=== PATIENT | male | born 1995 | race Caucasian/White ===

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

== ENCOUNTER 2017-02-06 14:44 | Emergency (ER) | payer MEDICAID, OTHER ==
[2017-02-06] MEDS ORDERED: Adacel Vial IM ONE ×2 (15:03→15:30)
[2017-02-06] MEDS ORDERED: Marcaine 0.5% SDV 10 ML IJ ONE (15:03)
[2017-02-06] MEDS ORDERED: Marcaine 0.5% SDV 10 ML ONE (15:07)
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
--- NOTE | 2017-02-06 15:55 | XRAY ---
Indication: Wrist/forearm laceration. Comparison: None 2 views of the right forearm obtained. No bony, articular, or soft tissue abnormalities.
[2017-02-06] MEDS ORDERED: BACIGUENT PACKET TP ONE (16:09)
[2017-02-06] MEDS ORDERED: BACIGUENT PACKET ONE (16:14)
[2017-02-06 16:20] VITALS: BP 138/76; PULSE 76; O2SAT 96
== END 2017-02-06 16:20 | disposition home or self-care (01) ==
LOC: ED 14:44
PROC: 0HQDXZZ Repair Right Lower Arm Skin, External Approach (ICD-10-PCS; principal; 2017-02-06)
DX: S51.811A Laceration without foreign body of right forearm, initial encounter (principal); W25.XXXA Contact with sharp glass, initial encounter; W22.8XXA Striking against or struck by other objects, initial encounter
CPT/HCPCS: 12002; 73090; 90471; 90715; 96372; 99284; A9270-GY

== ENCOUNTER 2017-02-26 13:09 | Emergency (ER) | payer OTHER ==
[2017-02-26 13:22] VITALS: BP 156/97
[2017-02-26] MEDS ORDERED: MOTRIN 400 MG PO ONE (13:29)
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
[2017-02-26] MEDS ORDERED: MOTRIN 400 MG ONE (13:49)
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
[2017-02-26 14:03] VITALS: PULSE 129
[2017-02-26 14:12] VITALS: O2SAT 96
== END 2017-02-26 14:49 | disposition home or self-care (01) ==
LOC: ED 13:09
DX: S09.90XA Unspecified injury of head, initial encounter (principal); T14.8XXA Other injury of unspecified body region, initial encounter; Y04.2XXA Assault by strike against or bumped into by another person, initial encounter
CPT/HCPCS: 70450; 70486; 99284; A9270-GY

== ENCOUNTER 2021-02-03 05:31 | Emergency (ER) | payer SELFPAY ==
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
[2021-02-03 06:10] VITALS: O2SAT 98
[2021-02-03 07:43] VITALS: BP 122/78; PULSE 62
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
== END 2021-02-03 07:43 | disposition home or self-care (01) ==
LOC: ED 05:31
DX: S61.210A Laceration without foreign body of right index finger without damage to nail, initial encounter (principal); W25.XXXA Contact with sharp glass, initial encounter; S61.214A Laceration without foreign body of right ring finger without damage to nail, initial encounter; Z72.0 Tobacco use
CPT/HCPCS: 12002; 73130; 99283

== ENCOUNTER 2021-09-08 19:03 | Emergency (ER) | payer OTHER ==
[2021-09-08] MEDS ORDERED: TORAdol 30 mg Injection IM ONE (19:29)
[2021-09-08] MEDS ORDERED: Norflex 60 MG/2 ML IM ONE (19:29)
--- NOTE | 2021-09-08 19:35 | ERPHSYRPT ---
- History of Present Illness Source: patient Exam Limitations: no limitations Patient Subjective Stated Complaint: pt states "My Left hip has been hurting for a while, I went to [facility] a couple mondays back and they prescribed a steriod that I finished this friday. Since I ran out of that medicine My hip has been hurting again. 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 Pain radiates down L leg. He has seen [facility] wo resolution. Acute injury is denied. Pain is 7/10, sharp, and worse w movement. 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 Pt denies incontinence and LE paralysis. He does states that his LLE gets"numb" from time to time. Timing/Duration: other (1 month) Method of Injury: unknown Quality: sharp, stabbing Back Pain Radiation: buttocks, lower legs Severity of Pain-Max: moderate Severity of Pain-Current: moderate Modifying Factors: Improves With: movement Associated Symptoms: lower back pain, No fever, No chills, No sweating, No urinary incontinence, No loss of bowel control, No constipation, No nausea, No vomiting, No problems urinating, No light-headedness, No dizziness, No numbness in legs/feet, No weakness, No sensory/motor loss, No tingling in legs/feet, No muscle spasms Previous symptoms: same symptoms as today Allergies/Adverse Reactions: No Known Drug Allergies Allergy (Verified 09/08/21 19:14) Hx Tetanus, Diphtheria Vaccination/Date Given: Yes Hx Influenza Vaccination/Date Given: No Hx Pneumococcal Vaccination/Date Given: No Immunizations Up to Date: Yes Travel Risk - International Travel Have you traveled outside of the country in past 3 weeks: No - Coronavirus Screening Are you exhibiting any of the following symptoms?: No Close contact with a COVID-19 positive Pt in past 14-21 Days: No - Vaccine Status Have you recieved a Covid-19 vaccination: No - Review of Systems Constitutional: No Symptoms Eyes: No Symptoms Ears, Nose, & Throat: No Symptoms Respiratory: No Symptoms Cardiac: No Symptoms Abdominal/Gastrointestinal: No Symptoms Genitourinary Symptoms: No Symptoms Musculoskeletal: No Symptoms, Arthralgias, Back Pain Skin: No Symptoms Neurological: No Symptoms Psychological: No Symptoms Endocrine: No Symptoms Hematologic/Lymphatic: No Symptoms Immunological/Allergic: No Symptoms - Past Medical History Pertinent Past Medical History: No Neurological History: No Pertinent History ENT History: No Pertinent History Cardiac History: No Pertinent History Respiratory History: No Pertinent History Endocrine Medical History: No Pertinent History Musculoskeletal History: No Pertinent History GI Medical History: No Pertinent History History: No Pertinent History Psycho-Social History: No Pertinent History Male Reproductive Disorders: No Pertinent History - Past Surgical History Past Surgical History: Yes Neuro Surgical History: No Pertinent History Cardiac: No Pertinent History Respiratory: No Pertinent History Gastrointestinal: No Pertinent History Genitourinary: No Pertinent History Musculoskeletal: Orthopedic Surgery Male Surgical History: No Pertinent History Other Surgical History: left ankle - Social History Smoking Status: Never smoker How long have you smoked: YRS Exposure to second hand smoke: Yes Alcohol Use: None Drug Use: none Patient Lives Alone: No Significant Family History: no pertinent family hx - Nursing Vital Signs Nursing Vital Signs: Initial Vital Signs Temperature 98.7 F 09/08/21 19:15 Pulse Rate 118 H 09/08/21 19:15 Respiratory Rate 18 09/08/21 19:15 Blood Pressure 175/111 09/08/21 19:15 O2 Sat by Pulse Oximetry 97 09/08/21 19:15 Pain Scale Pain Intensity 7 Hypertensive - Physical Exam General Appearance: no apparent distress Eye Exam: PERRL/EOMI, eyes nml inspection Ears, Nose, Throat Exam: normal ENT inspection, TMs normal, pharynx normal, moist mucous membranes Neck Exam: normal inspection, non-tender, supple, full range of motion, No meningismus, No mass, No Brudzinski, No Kernig's, No carotid bruit Respiratory Exam: normal breath sounds, lungs clear, airway intact, No respiratory distress Cardiovascular Exam: regular rate/rhythm, normal heart sounds, normal peripheral pulses, capillary refill <2 sec, No murmur Gastrointestinal Exam: soft, normal bowel sounds, No tenderness Back Exam: normal inspection, No CVA tenderness, No vertebral tenderness Extremity Exam: normal inspection, normal range of motion, pelvis stable, No calf tenderness, No parasthesia, No paralysis, No gio's sign, No joint swelling, No pedal edema Peripheral Pulses: carotid (R): 2+, carotid (L): 2+ Neurologic Exam: alert, oriented x 3, cooperative, 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 as tested, normal mood/affect, nml cerebellar function, nml station & gait, sensation nml Skin Exam: normal color, warm, dry Lymphatic Exam: No adenopathy SpO2 Interpretation: normal SpO2: 97 O2 Delivery: Room Air - Course Nursing assessment & vital signs reviewed: Yes - CT Exams Pelvis CT Interpretation: Tele-radiologist Report (Nothing acute) Lumbar Spine CT Interpretation: Tele-radiologist Report (Ct L-spine spondylosis L4-L5/Disc protrusion impinging on L5 nerve root/Mod canal stenosis/8mm soft tissue mass on R possible small nerve sheath tumor/Partially calcified disc protrusion at L3-L4 involving L L4 nerve root) Ordered Tests: Active Orders 24 hr Category Date Time Status LUMBAR SPINE W/O [CT] Stat Exams 09/08/21 19:29 Taken PELVIS WITHOUT CONTRAST [CT] Stat Exams 09/08/21 19:28 Taken Medication Summary Discontinued Medications Generic Name Dose Route Start Last Admin Trade Name Freq PRN Reason Stop Dose Admin Ketorolac Tromethamine 60 mg 09/08/21 19:29 09/08/21 19:45 Ketorolac Tromethamine 30 Mg/Ml Inj IM 09/08/21 19:30 60 mg STAT ONE Administration Ketorolac Tromethamine Confirm 09/08/21 19:38 Ketorolac Tromethamine 30 Mg/Ml Inj Administered 09/08/21 19:39 Dose 60 mg .ROUTE .STK-MED ONE Orphenadrine Citrate 60 mg 09/08/21 19:29 09/08/21 19:45 Orphenadrine Citrate 60 Mg/2 Ml Vial IM 09/08/21 19:30 60 mg STAT ONE Administration Orphenadrine Citrate Confirm 09/08/21 19:38 Orphenadrine Citrate 60 Mg/2 Ml Vial Administered 09/08/21 19:39 Dose 60 mg .ROUTE .STK-MED ONE - Progress Progress: improved Progress Note: 09/08/21 20:56 60mg IM Toradol/60mg IM Norflex w improvement in pain Ct results reviewed w pt Counseled pt/family regarding: diagnosis, need for follow-up, rad results - Departure Departure Disposition: Home Clinical Impression: Degenerative disc disease Condition: Stable Critical Care Time: No Referrals: WOOD MORTENSEN [Primary Care Provider] - Follow up/PCP as directed Instructions: Low Back Pain (DC), Sciatica (DC) Additional Instructions: Follow up with orthopedic clinic on Friday 8:00AM-10:00AM Lodine/Norflex as needed for pain Forms: Work/School Release Form Prescriptions: Etodolac 400 mg [Lodine 400 mg] 400 mg PO BID PRN PRN #14 tablet PRN Reason: Pain Orphenadrine Citrate 100 mg [Norflex 100 MG Tablet] 100 mg PO BID PRN PRN #14 tab PRN Reason: Pain
[2021-09-08] MEDS ORDERED: TORAdol 30 mg Injection ONE (19:38)
[2021-09-08] MEDS ORDERED: Norflex 60 MG/2 ML ONE (19:38)
[2021-09-08 20:08] VITALS: BP 145/88; PULSE 90
[2021-09-08 20:56] VITALS: O2SAT 97
--- NOTE | 2021-09-09 07:48 | XRAY ---
Indication: Severe left hip and left leg pain. Multiple contiguous axial images obtained through the lumbar spine. Sagittal and coronal reformatted images obtained. Comparison: None Axial images demonstrates broad-based disc bulge at L3-L4 level. At L4-L5, there is large broad-based disc subligamentous disc herniation effacing the thecal sac and producing spinal canal/bilateral foraminal stenosis. Remaining lumbar disc levels are unremarkable. Facets are symmetric. Sagittal and coronal reformatted images demonstrates normal alignment with minimal L3-S1 disc space narrowing. No acute compression fracture or subluxation. Visualized noncontrasted soft tissues are unremarkable. Impression: 1. L4-L5 subligamentous disc herniation with spinal canal and bilateral foraminal stenosis. MRI may yield further information. 2. L3-L4 degenerative disc bulge. Comment: Preliminary interpretation made by [facility]. No critical discrepancy.
--- NOTE | 2021-09-09 07:48 | XRAY ---
Indication: Severe left hip and left leg pain. No known injury. Multiple contiguous axial images obtained through the pelvis with special attention to the osseous structures. Sagittal and coronal reformatted images obtained. Comparison: None No acute fracture, dislocation, or suspicious bony lesions. Visualized noncontrasted soft tissues including visualized bowel loops, urinary bladder, and major arteries/veins are unremarkable. CT lumbar spine reported separately. Impression: Negative CT pelvis. Comment: Preliminary interpretation made by [facility]. No critical discrepancy.
== END 2021-09-08 21:09 | disposition home or self-care (01) ==
LOC: ED 19:03
DX: M51.36 Other intervertebral disc degeneration, lumbar region (principal); M48.061 Spinal stenosis, lumbar region without neurogenic claudication; M25.552 Pain in left hip; M54.50 Low back pain, unspecified; Z28.310 Unvaccinated for COVID-19
CPT/HCPCS: 72131; 72192; 96372; 99283; J1885; J2360

== ENCOUNTER 2022-12-17 16:29 | Emergency (ER) | payer OTHER ==
[2022-12-17 16:50] VITALS: TEMP 98.2; O2SAT 98
[2022-12-17] MEDS ORDERED: Rocephin 1000 MG INJ IM ONE (17:00)
[2022-12-17] MEDS ORDERED: DECADRON 10MG INJ. IM ONE (17:04)
--- NOTE | 2022-12-17 17:06 | ERPHSYRPT ---
- History of Present Illness Time Seen by Provider: 12/17/22 16:50 Source: patient Exam Limitations: no limitations Patient Subjective Stated Complaint: Pt c/o of sore throat, body aches, and a fever since yesterday morning Triage Nursing Assessment: Pt brought to the ER by his friend, hypertensive, rates overall pain as 3/10, pulses normal, skin n/w/d, nausea, denies vomiting, unable to eat due to thinking he may vomit, doesn't appear to be in any distress Physician History: Patient a 27-year-old male presents to our emergency department for evaluation of a sore throat, fever and tender anterior cervical lymph nodes. That he has had for since yesterday. Symptoms have been progressive. Today he is experiencing body aches. Patient has a decreased appetite. No nausea or vomiting. No rash. Symptoms are progressive. Symptoms are moderate in intensity. No specific worsening or improving factors. 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 Patient's [id number] is at the bedside. He voices no other complaints or concerns at this time. Portions of this note were created with voice recognition technology. There may be grammatical, spelling, punctuation or sound alike errors Timing/Duration: today Severity: moderate Modifying Factors: Improves With: nothing Associated Symptoms: fever, loss of appetite, No vomiting, No abdominal pain, No shortness of breath Allergies/Adverse Reactions: No Known Drug Allergies Allergy (Verified 12/17/22 16:50) Hx Tetanus, Diphtheria Vaccination/Date Given: Yes Hx Influenza Vaccination/Date Given: No Hx Pneumococcal Vaccination/Date Given: No Travel Risk - International Travel Have you traveled outside of the country in past 3 weeks: No - Coronavirus Screening Are you exhibiting any of the following symptoms?: Yes Symptoms: Fever, Cough: New Onset, Shortness of Breath, Vomiting/Diarrhea, Headaches/Body Aches/Fatigue Close contact with a COVID-19 positive Pt in past 14-21 Days: No - Vaccine Status Have you recieved a Covid-19 vaccination: No - Review of Systems Constitutional: No Symptoms, No Fever, No Chills Eyes: No Symptoms Ears, Nose, & Throat: No Symptoms Respiratory: No Symptoms, No Cough, No Dyspnea Cardiac: No Symptoms, No Chest Pain, No Edema, No Syncope Abdominal/Gastrointestinal: No Symptoms, No Abdominal Pain, No Nausea, No Vomiting, No Diarrhea Genitourinary Symptoms: No Symptoms, No Dysuria Musculoskeletal: No Symptoms, No Back Pain, No Neck Pain Skin: No Symptoms, No Rash Neurological: No Symptoms, No Dizziness, No Focal Weakness, No Sensory Changes Psychological: No Symptoms Endocrine: No Symptoms Hematologic/Lymphatic: No Symptoms Immunological/Allergic: No Symptoms All Other Systems: Reviewed and Negative - Past Medical History Pertinent Past Medical History: No Neurological History: No Pertinent History ENT History: No Pertinent History Cardiac History: No Pertinent History Respiratory History: No Pertinent History Endocrine Medical History: No Pertinent History Musculoskeletal History: No Pertinent History GI Medical History: No Pertinent History History: No Pertinent History Psycho-Social History: No Pertinent History Male Reproductive Disorders: No Pertinent History - Past Surgical History Past Surgical History: Yes Neuro Surgical History: No Pertinent History Cardiac: No Pertinent History Respiratory: No Pertinent History Gastrointestinal: No Pertinent History Genitourinary: No Pertinent History Musculoskeletal: Orthopedic Surgery Male Surgical History: No Pertinent History Other Surgical History: left ankle - Social History Smoking Status: Never smoker How long have you smoked: YRS Exposure to second hand smoke: No Alcohol Use: None Drug Use: none Patient Lives Alone: Yes Significant Family History: no pertinent family hx - Nursing Vital Signs Nursing Vital Signs: Initial Vital Signs Temperature 98.2 F 12/17/22 16:43 Pulse Rate 80 12/17/22 16:43 Blood Pressure 162/86 12/17/22 16:43 O2 Sat by Pulse Oximetry 98 12/17/22 16:43 Pain Scale Pain Intensity 3 - Physical Exam General Appearance: no apparent distress, alert Eye Exam: PERRL/EOMI, eyes nml inspection Ears, Nose, Throat Exam: normal ENT inspection, TMs normal, moist mucous membranes, other (Tonsillar exudate) Neck Exam: normal inspection, non-tender, supple, full range of motion, other (Anterior cervical lymphadenopathy, enlarged tonsils with exudate bilaterally) Respiratory Exam: normal breath sounds, lungs clear, airway intact, No respiratory distress Cardiovascular Exam: regular rate/rhythm, normal heart sounds, normal peripheral pulses Gastrointestinal/Abdomen Exam: soft, normal bowel sounds, No tenderness, No mass Back Exam: normal inspection, normal range of motion, No CVA tenderness, No vertebral tenderness Extremity Exam: normal inspection, normal range of motion, pelvis stable Neurologic Exam: alert, oriented x 3, cooperative, normal mood/affect, nml cerebellar function, nml station & gait, sensation nml, No motor deficits Skin Exam: normal color, warm, dry, No rash Lymphatic Exam: No adenopathy SpO2 Interpretation: normal SpO2: 98 O2 Delivery: Room Air - Course Nursing assessment & vital signs reviewed: Yes Ordered Tests: Medication Summary Discontinued Medications Generic Name Dose Route Start Last Admin Trade Name Osorio PRN Reason Stop Dose Admin Ceftriaxone Sodium 1,000 mg 12/17/22 17:00 Ceftriaxone Sodium 1000 Mg Inj Vial IM 12/17/22 17:01 STAT ONE - Progress Progress: improved Progress Note: Patient a 27-year-old male presents to the emergency department for evaluation of sore throat, fever and body aches. Patient experiencing decreased appetite as well. Physical exam reveals tonsillar exudate anterior cervical lymphadenopathy. Patient currently afebrile. Patient is positive for strep based on [facility] criteria. Patient received an IM dose of Rocephin 1 g. Patient also received 10 mg of Decadron IM. A prescription for Augmentin forwarded to patient's pharmacy. No indication for further work-up at this time. Will discharge home. Patient agrees to follow-up with his primary care doctor within 48 hours for evaluation. He voices no other complaints or concerns at this time. Portions of this note were created with voice recognition technology. There may be grammatical, spelling, punctuation or sound alike errors Complexity of problems addressed is moderate acute complicated No critical care time Complexity of data reviewed is none. No specialized testing ordered. Diagnosis made based on history and physical exam. Risk of complication and or risk of morbidity/mortality of patient management is moderate. Patient received an IM dose of Rocephin and Decadron. A prescription for Augmentin was forwarded to patient's pharmacy. We will discharge patient home. Vital stable. Blood pressure slightly elevated. He will require follow-up with his primary care doctor for blood pressure monitoring and possible management. Time spent to discharge patient is approximately 15 minutes. Plan of care established for shared decision making. No social determinants of health present to impede follow-up. Portions of this note were created with voice recognition technology. There may be grammatical, spelling, punctuation or sound alike errors 12/17/22 17:12 Counseled pt/family regarding: diagnosis, need for follow-up - Departure Departure Disposition: Home Clinical Impression: Strep tonsillitis Condition: Stable Critical Care Time: No Additional Instructions: Discharge/Care Plan BERNABE MCCOY was seen on 12/17/22 in the Emergency Room. The patient was counseled regarding Diagnosis,Lab results, Imaging studies, need for follow up and when to return to the Emergency Room. Prescriptions given: Discharge Note I have spoken with the patient and/or caregivers. I have explained the patient's condition, diagnosis and treatment plan based on the information available to me at this time. I have answered the patient's and/or caregiver's questions and addressed any concerns. The patient and/or caregivers have as good understanding of the patient's diagnosis, condition and treatment plan as can be expected at this point. The vital signs have been stable. The patient's condition is stable and appropriate for discharge from the emergency department. The patient will pursue further outpatient evaluation with the primary care physician or other designated or consulting physician as outlined in the discharge instructions. The patient and/or caregivers are agreeable to this plan of care and follow-up instructions have been explained in detail. The patient and/or caregivers have received these instruction. The patient/and or caregivers are aware that any significant change in condition or worsening of symptoms should prompt an immediate return to this or the closest emergency department or call 911. Prescriptions: Amox Tr/Potass Clav. 875 mg [Augmentin 875-125 Tablet] 875 mg PO BID 7 Days #14 tablet
[2022-12-17] MEDS ORDERED: DECADRON 10MG INJ. ONE (17:09)
[2022-12-17] MEDS ORDERED: Rocephin 1000 MG INJ ONE (17:10)
[2022-12-17] MEDS ORDERED: XYLOCAINE 1% HCL 20 ML MDV ONE (17:10)
[2022-12-17 17:26] VITALS: BP 134/73; PULSE 79
== END 2022-12-17 17:30 | disposition home or self-care (01) ==
LOC: ED 16:29
DX: J03.00 Acute streptococcal tonsillitis, unspecified (principal); R50.9 Fever, unspecified; M79.10 Myalgia, unspecified site; Z28.310 Unvaccinated for COVID-19
CPT/HCPCS: 96372; 99283; J0696; J1100

== ENCOUNTER 2023-03-24 13:32 | Emergency (ER) | payer OTHER ==
[2023-03-24 13:53] VITALS: TEMP 98.3
[2023-03-24] MEDS ORDERED: TORAdol 30 mg Injection ONE (14:07)
[2023-03-24] MEDS ORDERED: Zofran 4 MG/2 ML VIAL ONE (14:07)
[2023-03-24] MEDS ORDERED: Sodium Chloride 0.9% 1000 ML 1,000 ML ONE (14:07)
[2023-03-24] MEDS: Sodium Chloride 0.9% 1000 ML 1,000 ML IV STA (14:13)
[2023-03-24] MEDS: Zofran 4 MG/2 ML VIAL IV ONE (14:16)
[2023-03-24] MEDS: TORAdol 30 mg Injection IV ONE (14:16)
[2023-03-24 14:19] LABS: Absolute Neutrophil Ct (ANC) 3.96 x10^3/uL (1.4-6.9); BASOPHIL % 0.5 % (0.0-0.4); Basophil (Absolute #) 0.04 x10^3/uL (0-0.4); Eosinophil % 3.4 % (0.00-5.0); Eosinophil (Absolute #) 0.26 x10^3/uL (0-0.5); Hemoglobin 15.6 g/dL (12.5-18.0); IMMATURE GRAN # 0.02 x10^3u/L (0.00-0.03); IMMATURE GRAN % 0.3 % (0.00-0.4); Lymphocyte (Absolute #) 2.76 x10^3/uL (1.0-4.6); Lymphocytes % 36.6 % (24.0-44.0); Mean Cell Volume 86.4 fL (78-100); Mean Corpuscular Hemoglobin 29.9 pg (26-32); Mean Corpuscular Hgb Concent. 34.7 g/dL (32-36); Mean Platelet Volume 12.2 fL (7.5-11.0); Monocyte (Absolute #) 0.51 x10^3/uL (0.0-1.3); Monocytes % 6.8 % (0.0-12.0); Neutrophil % 52.4 % (36.0-66.0); Platelet Count 211 x10^3/uL (150-450); Red Blood Count 5.21 x10^6/uL (4.1-5.6); Red Cell Distribution Width 12.7 % (11.5-14.0); White Blood Count 7.6 x10^3/uL (4.0-10.5)
--- NOTE | 2023-03-24 14:27 | XRAY ---
Indication: Pneumonia. Vomiting blood. Comparison: June 28, 2014 Portable chest again demonstrates normal heart and lungs. Bony thorax intact. No new/acute findings.
[2023-03-24 14:34] LABS: ALBUMIN 4.4 g/dL (3.5-5.0); ANION GAP 10.4 MEQ/L (5-15); BILIRUBIN,TOTAL 1.8 mg/dL (0.2-1.3); Calcium 9.3 mg/dL (8.4-10.2); Creatinine 1 0.8 mg/dL (0.66-1.25); Total Protein 7.8 g/dL (6.3-8.2)
[2023-03-24 15:02] VITALS: BP 138/76; PULSE 70; RESP 30; O2SAT 98
--- NOTE | 2023-03-24 15:04 | ERPHSYRPT ---
- History of Present Illness Time Seen by Provider: 03/24/23 13:35 Source: patient Exam Limitations: no limitations Patient Subjective Stated Complaint: C/O vomiting blood this am. States that sometimes it is bright red and other times it is darker, almost black. Denies di arrhea. States he has an "indigestion" pain in his upper abdomen and into his chest. Triage Nursing Assessment: Patient ambulated back to ER. He is alert and oriented. Patient a little SOB with exertion but denies being SOB. No cough. Skin tone normal. SALAZAR WNL. Physician History: Patient has been vomiting since this morning. Feeling there may be some blood tinge to it. Bright red. Symptoms darker. No other symptoms. No diarrhea. Some indigestion. Epigastric, into his chest. He is otherwise healthy. No falls no trauma. No chest pain. No signs or symptoms of pulmonary embolism today. Allergies/Adverse Reactions: No Known Drug Allergies Allergy (Verified 03/24/23 13:40) Home Medications: Naproxen 500 mg [Naprosyn 500 MG] 1 tab PO BID 03/24/23 [History] Hx Tetanus, Diphtheria Vaccination/Date Given: Yes Hx Influenza Vaccination/Date Given: No Hx Pneumococcal Vaccination/Date Given: No Immunizations Up to Date: Yes Travel Risk - International Travel Have you traveled outside of the country in past 3 weeks: No - Coronavirus Screening Are you exhibiting any of the following symptoms?: No Close contact with a COVID-19 positive Pt in past 14-21 Days: No - Vaccine Status Have you recieved a Covid-19 vaccination: No - Past Medical History Pertinent Past Medical History: No Neurological History: No Pertinent History ENT History: No Pertinent History Cardiac History: No Pertinent History Respiratory History: No Pertinent History Endocrine Medical History: No Pertinent History Musculoskeletal History: No Pertinent History GI Medical History: No Pertinent History History: No Pertinent History Psycho-Social History: No Pertinent History Male Reproductive Disorders: No Pertinent History - Past Surgical History Past Surgical History: Yes Neuro Surgical History: No Pertinent History Cardiac: No Pertinent History Respiratory: No Pertinent History Gastrointestinal: No Pertinent History Genitourinary: No Pertinent History Musculoskeletal: Orthopedic Surgery Male Surgical History: No Pertinent History Other Surgical History: left ankle, right hand/finger tendon repair, L4 surgery - Social History Smoking Status: Never smoker How long have you smoked: YRS Exposure to second hand smoke: No Alcohol Use: None Drug Use: none Patient Lives Alone: Yes Significant Family History: no pertinent family hx - Nursing Vital Signs Nursing Vital Signs: Initial Vital Signs Temperature 98.3 F 03/24/23 13:42 Pulse Rate 85 03/24/23 13:42 Respiratory Rate 15 03/24/23 13:42 Blood Pressure 163/89 03/24/23 13:42 O2 Sat by Pulse Oximetry 99 03/24/23 13:42 Pain Scale Pain Intensity 3 - Physical Exam SpO2 Interpretation: normal SpO2: 98 Comments: 03/24/23 15:18 Review of Systems Constitutional: Negative for fever. HENT: Negative for congestion. Respiratory: Negative for shortness of breath. Cardiovascular: Negative for chest pain. Gastrointestinal: Negative for abdominal pain. Vomiting Genitourinary: Negative for dysuria. Musculoskeletal: Negative for back pain. Skin: Negative for rash. Neurological: Negative for headaches. Psychiatric/Behavioral: Negative for behavioral problems. All other systems reviewed and are negative. Physical Exam Vitals signs and nursing note reviewed. Constitutional: Appearance: Patient is well-developed. HENT: Head: Normocephalic and atraumatic. Eyes: Conjunctiva/sclera: Conjunctivae normal. Neck: Trachea: No tracheal deviation. Cardiovascular: Rate and Rhythm: Normal rate. Pulmonary: Effort: Pulmonary effort is normal. No respiratory distress. Abdominal: Palpations: Abdomen is soft. No rebound or guarding no tenderness Musculoskeletal: General: No deformity. Skin: General: Skin is warm and dry. Neurological: Mental Status: Patient is alert and oriented to person, place, and time, behavior normal. - Course Nursing assessment & vital signs reviewed: Yes EKG Interpreted by Me: Sinus Rhythm (EKG shows sinus rhythm, rate 78, MN interval 157, QRS 103, QTc 377, no STEMI no other ST changes) Ordered Tests: Active Orders 24 hr Category Date Time Status IV Insertion STAT Care 03/24/23 14:03 Active CHEST 1 VIEW (PORTABLE) Stat Exams 03/24/23 14:04 Completed AMYLASE Stat Lab 03/24/23 14:00 Completed CBC W DIFF Stat Lab 03/24/23 14:03 Completed CMP Stat Lab 03/24/23 14:00 Completed LIPASE Stat Lab 03/24/23 14:00 Completed UA W/RFX UR CULTURE Stat Lab 03/24/23 15:00 Received Medication Summary Discontinued Medications Generic Name Dose Route Start Last Admin Trade Name Osorio PRN Reason Stop Dose Admin Sodium Chloride 1,000 mls @ 999 mls/hr 03/24/23 14:03 03/24/23 14:13 Sodium Chloride 0.9% 1000 Ml IV 03/24/23 15:03 999 mls/hr .Q1H1M STA Administration Sodium Chloride Confirm 03/24/23 14:07 Sodium Chloride 0.9% 1000 Ml Administered 03/24/23 14:08 Dose 1,000 mls @ ud .ROUTE .STK-MED ONE Ketorolac Tromethamine 30 mg 03/24/23 14:03 03/24/23 14:16 Ketorolac Tromethamine 30 Mg/Ml Inj IV 03/24/23 14:04 30 mg STAT ONE Administration Ketorolac Tromethamine Confirm 03/24/23 14:07 Ketorolac Tromethamine 30 Mg/Ml Inj Administered 03/24/23 14:08 Dose 30 mg .ROUTE .STK-MED ONE Ondansetron HCl 4 mg 03/24/23 14:03 03/24/23 14:16 Ondansetron Hcl 4 Mg/2 Ml Vial IV 03/24/23 14:04 4 mg STAT ONE Administration Ondansetron HCl Confirm 03/24/23 14:07 Ondansetron Hcl 4 Mg/2 Ml Vial Administered 03/24/23 14:08 Dose 4 mg .ROUTE .STK-MED ONE Lab/Rad Data: Laboratory Result Diagrams 03/24/23 14:03 03/24/23 14:00 Laboratory Results 03/24/23 03/24/23 Range/Units 14:03 14:00 WBC 7.6 (4.0-10.5) x10^3/uL RBC 5.21 (4.1-5.6) x10^6/uL Hgb 15.6 (12.5-18.0) g/dL Hct 45.0 (42-50) % MCV 86.4 (78-100) fL MCH 29.9 (26-32) pg MCHC 34.7 (32-36) g/dL RDW 12.7 (11.5-14.0) % Plt Count 211 (150-450) x10^3/uL MPV 12.2 H (7.5-11.0) fL Gran % 52.4 (36.0-66.0) % Immature Gran % (Auto) 0.3 (0.00-0.4) % Nucleat RBC Rel Count 0.0 (0.00-0.1) % Eos # (Auto) 0.26 (0-0.5) x10^3/uL Immature Gran # (Auto) 0.02 (0.00-0.03) x10^3u/L Absolute Lymphs (auto) 2.76 (1.0-4.6) x10^3/uL Absolute Monos (auto) 0.51 (0.0-1.3) x10^3/uL Absolute Nucleated RBC 0.00 (0.00-0.01) x10^3u/L Lymphocytes % 36.6 (24.0-44.0) % Monocytes % 6.8 (0.0-12.0) % Eosinophils % 3.4 (0.00-5.0) % Basophils % 0.5 (0.0-0.4) % Absolute Granulocytes 3.96 (1.4-6.9) x10^3/uL Basophils # 0.04 (0-0.4) x10^3/uL Sodium 136 L (137-145) mmol/L Potassium 4.0 (3.5-5.1) mmol/L Chloride 107 (98-107) mmol/L Carbon Dioxide 22 (22-30) mmol/L Anion Gap 10.4 (5-15) MEQ/L BUN 10 (9-20) mg/dL Creatinine 0.80 (0.66-1.25) mg/dL Estimated GFR 126.0 ML/MIN Glucose 98 (74-106) mg/dL Calcium 9.3 (8.4-10.2) mg/dL Total Bilirubin 1.80 H (0.2-1.3) mg/dL AST 50 (17-59) U/L ALT 121 H (0-50) U/L Alkaline Phosphatase 63 (38-126) U/L Serum Total Protein 7.8 (6.3-8.2) g/dL Albumin 4.4 (3.5-5.0) g/dL Amylase 67 (30-110) U/L Lipase 183 (23-300) U/L - Progress Progress: improved Progress Note: 03/24/23 15:19 Differential diagnosis includes: PNA, STEMI, NSTEMI, other infection, musc uloskeletal pain, pneumothorax, GI bug - We'll obtain basic labs, fluids, EKG, chest x-ray - EKG shows no ST changes - my read - O2 saturations consistently greater than 95%. - CXR shows no pneumonia, pneumothorax - my read Reevaluation: Patient feels entirely resolved with medications and fluids here. No further vomiting. Patient requesting discharge home at this point in time. Patient will have close follow-up with PCP. May return here sooner for new or changing symptoms. Counseled pt/family regarding: lab results, diagnosis, rad results Medical Desision Making - Diagnostic Testing Diagnostic test were ordered, analyzed, and reviewed by me: Yes Radiological Interpretation: Interpreted by me, Reviewed by me - Departure Departure Disposition: Home Clinical Impression: Vomiting Condition: Stable Critical Care Time: No Referrals: ZEINA PRABHAKAR [Primary Care Provider] - Follow up/PCP as directed Prescriptions: Ondansetron ODT 4 MG [Zofran Odt 4 mg] 4 mg PO Q6H PRN PRN #10 tablet PRN Reason: Vomiting
[2023-03-24 15:19] LABS: Appearance Clear (Clear); Bacteria None Seen /HPF (None Seen); Bilirubin Negative (Negative); Blood Negative (Negative); Epithelial Cells None Seen /HPF (None Seen); Glucose, Urine Negative (Negative); Hyaline Casts NONE SEEN /LPF (0-2); Ketones Negative (Negative); Leukocyte Esterase Trace (Negative); Nitrite Negative (Negative); Ph 5.5 (4.6-8.0); Protein,Urine Dip Negative (Negative); RBC 0-2 /HPF (0-5); Specific Gravity 1.025 (1.005-1.030); WBC 21-50 /HPF (0-5)
[2023-03-24 15:20] LABS: ADD URINE CULTURE? YES (NO)
== END 2023-03-24 15:21 | disposition home or self-care (01) ==
LOC: ED 13:32
DX: R11.10 Vomiting, unspecified (principal); R10.13 Epigastric pain; Z28.310 Unvaccinated for COVID-19
CPT/HCPCS: 36000; 36415; 71045; 80053; 81001; 82150; 83690; 85025; 87086; 96360; 96374; 99284; J1885; J2405

== ENCOUNTER 2024-01-02 04:45 | Emergency (ER) | payer OTHER ==
[2024-01-02 05:01] VITALS: RESP 22; O2SAT 98
[2024-01-02] MEDS ORDERED: TORAdol 30 mg Injection ONE (05:26)
[2024-01-02] MEDS: TORAdol 30 mg Injection IM ONE (05:27)
--- NOTE | 2024-01-02 05:34 | ERPHSYRPT ---
- History of Present Illness Time Seen by Provider: 01/02/24 05:28 Source: patient Exam Limitations: no limitations Patient Subjective Stated Complaint: pt states that he was at work and thought he had a pinched nerve. pt states that his arm became purple and cold. pt states he is having pain in his rt arm Triage Nursing Assessment: pt ambulated into the er; pt is axo x4; c/o rt upper arm pain; pt states 5/10 pain to upper rt arm; good ROM to rt wrist and rt hand; pt has decreased ROM to shoulder and rt elbow; no discoloration present to rt u pper extremity; strong rt radial pulse; good cap refill to rt hand; no respiratory distress present; hypertensive; tachycardic Physician History: patient states that he was at work and thought he had a pinched nerve. pt states that his arm became purple and cold. He states he is having pain in his right arm c/o rt upper arm pain; pt states 5/10 pain to upper right arm; good ROM to rt wrist and rt hand; pt has decreased ROM to shoulder and right elbow Occurred: just prior to arrival Method of Injury: unknown Quality: constant Severity of Pain-Max: mild Severity of Pain-Current: mild Extremities Pain Location: arm: right, elbow: right, forearm: right Modifying Factors: Improves With: nothing Associated Symptoms: none Body Map: 1 - area of pain Allergies/Adverse Reactions: No Known Drug Allergies Allergy (Verified 01/02/24 04:49) Hx Tetanus, Diphtheria Vaccination/Date Given: No (unsure) Hx Influenza Vaccination/Date Given: No Hx Pneumococcal Vaccination/Date Given: No Travel Risk - International Travel Have you traveled outside of the country in past 3 weeks: No - Emerging Infectious Disease Are you exhibiting symptoms associated with any current EIDs: No - Review of Systems Constitutional: No Symptoms Eyes: No Symptoms Ears, Nose, & Throat: No Symptoms Respiratory: No Symptoms Cardiac: No Symptoms Abdominal/Gastrointestinal: No Symptoms Genitourinary Symptoms: No Symptoms Musculoskeletal: Joint Pain, No Fall Skin: No Symptoms Neurological: No Symptoms Psychological: No Symptoms Endocrine: No Symptoms Hematologic/Lymphatic: No Symptoms Immunological/Allergic: No Symptoms - Past Medical History Pertinent Past Medical History: No Neurological History: No Pertinent History ENT History: No Pertinent History Cardiac History: No Pertinent History Respiratory History: No Pertinent History Endocrine Medical History: No Pertinent History Musculoskeletal History: No Pertinent History GI Medical History: No Pertinent History History: No Pertinent History Psycho-Social History: No Pertinent History Male Reproductive Disorders: No Pertinent History - Past Surgical History Past Surgical History: Yes Neuro Surgical History: No Pertinent History Cardiac: No Pertinent History Respiratory: No Pertinent History Gastrointestinal: No Pertinent History Genitourinary: No Pertinent History Musculoskeletal: Orthopedic Surgery Male Surgical History: No Pertinent History Other Surgical History: left ankle, right hand/finger tendon repair, L4 surgery Significant Family History: no pertinent family hx - Social History Smoking Status: Never smoker How long have you smoked: YRS Exposure to second hand smoke: No Alcohol Use: None Drug Use: none Patient Lives Alone: Yes - Social Determinants of Health Will the patient participate in the screening: Yes Do you worry about a steady place to live?: No Do you have any problems with any of the following?: No known problems In the past 12 months,have you had to go without utilities?: No Transportation Issues: No Has anyone in your support network made you feel unsafe?: No Have you or anyone in your house had to go without enough: No - Nursing Vital Signs Nursing Vital Signs: Initial Vital Signs Pulse Rate 126 H 01/02/24 04:51 Respiratory Rate 22 01/02/24 04:51 O2 Sat by Pulse Oximetry 98 01/02/24 04:51 Pain Scale Pain Intensity 5 - Physical Exam General Appearance: alert Eyes, Ears, Nose, Throat Exam: moist mucous membranes Neck Exam: non-tender, supple Cardiovascular/Respiratory Exam: chest non-tender, normal breath sounds, regular rate/rhythm, no respiratory distress, normal peripheral pulses Abdominal Exam: non-tender, No guarding Back Exam: normal inspection, No vertebral tenderness Shoulder Exam: normal inspection, no evidence of injury, normal ROM Elbow/Forearm Exam: normal inspection, no evidence of injury, normal ROM, pain, soft tissue tenderness, No abrasions, No asymmetry, No bone tenderness, No deformity, No ecchymosis, No swelling Wrist Exam: normal inspection Hand Exam: normal inspection DTR - Upper Extremity Exam: bicep (R): 2+, bicep (L): 2+, tricep (R): 2+, tricep (L): 2+ Neuro/Tendon Exam: normal sensation, normal motor functions Mental Status Exam: alert, oriented x 3, cooperative Skin Exam: normal color, warm, dry SpO2 Interpretation: normal SpO2: 98 O2 Delivery: Room Air - Course Nursing assessment & vital signs reviewed: Yes Ordered Tests: Medication Summary Discontinued Medications Generic Name Dose Route Start Last Admin Trade Name Osorio PRN Reason Stop Dose Admin Ketorolac Tromethamine 60 mg 01/02/24 05:24 01/02/24 05:27 Ketorolac Tromethamine 30 Mg/Ml Inj IM 01/02/24 05:25 60 mg STAT ONE Administration Ketorolac Tromethamine Confirm 01/02/24 05:26 Ketorolac Tromethamine 30 Mg/Ml Inj Administered 01/02/24 05:27 Dose 60 mg .ROUTE .STK-MED ONE - Progress Progress: improved, pain not gone completely Counseled pt/family regarding: diagnosis, need for follow-up Medical Desision Making - Diagnostic Testing Diagnostic test were ordered, analyzed, and reviewed by me: No - Risk of complications Minimal Risk: Minimal risk of morbidity - Departure Departure Disposition: Home Clinical Impression: Right elbow pain, Pain in right forearm Condition: Stable Critical Care Time: No Referrals: ZEINA PRABHAKAR [Primary Care Provider] - Follow Up with PCP/3 days Instructions: Active Range of Motion Exercises, Arms and Hands, Upper Extremity Exercises Seated, General, Upper Extremity Exercises Seated for the Elbow and Wrist Additional Instructions: Discharge/Care Plan BERNABE MCCOY was seen on 01/02/24 in the Emergency Room. The patient was counseled regarding Diagnosis,Lab results, Imaging studies, need for follow up and when to return to the Emergency Room. Prescriptions given: Discharge Note I have spoken with the patient and/or caregivers. I have explained the patient's condition, diagnosis and treatment plan based on the information available to me at this time. I have answered the patient's and/or caregiver's questions and addressed any concerns. The patient and/or caregivers have as good understanding of the patient's diagnosis, condition and treatment plan as can be expected at this point. The vital signs have been stable. The patient's condition is stable and appropriate for discharge from the emergency department. The patient will pursue further outpatient evaluation with the primary care physician or other designated or consulting physician as outlined in the discharge instructions. The patient and/or caregivers are agreeable to this plan of care and follow-up instructions have been explained in detail. The patient and/or caregivers have received these instruction. The patient/and or caregivers are aware that any significant change in condition or worsening of symptoms should prompt an immediate return to this or the closest emergency department or call 911. BERNABE MCCOY was seen on 01/02/24 n the Emergency Room. At that time you were treated for an emergent condition, during your visit Laboratory, Radiology and/or other procedures may have been ordered. It is very important t hat you follow-up with your Primary Care Physician ZEINA PRABHAKAR within the next 24-48 hours to review your Emergency Room visit and the final results of testing that was ordered. Some test results such as Urine Cultures, Blood Cultures, and other cultures if ordered will not be finalized for 24-48 hours. If you do not have a Primary Care Provider please call the medical records department at [phone] ext [phone] to obtain a copy of your results or you may sign into our patient portal to obtain these results by visiting us @ [email or web address] and completing the following steps: 1. Click on the Patient Portal link 2. Click the Patient Self Enrollment Link to complete the enrollment form and entering your 3. Once the enrollment form is completed you will receive an email with a temporary ID and password at the email address you provided. 4. Next choose a user name and password. Your user name must be at least 4 characters long and your password must be at least 4 characters long. 5. Choose a security question from the list and provide your answer to the question. If you already have signed into the Health Portal you may access your Health Care Information 09/09 by the following steps: 1. Login to our website @ [email or web address] 2. Enter your original user name and password. FAQS The [facility] Health Portal is an online tool that contains your Lab Results, Radiology Reports, Visit History, Discharge Instructions and Health Summary Lab and Radiology Results will not be available for 72 hours on the portal. The Portal is a secure site, passwords are encryted and URLs are re-written so they cannot be copied and pasted. You and authorized family members are the only ones who can access your Portal. Also there is a timeout feature that protects your information if you leave the Portal page open. If you have technical difficulty please use the Contact Us link on the page this will allow you to submit any questions you have regarding the Portal or you may contact the Medical Record Department at [phone] ext [phone]. Forms: Work/School Release Form Prescriptions: Ketorolac Trometh 10 mg Tab [TORAdol 10 MG TABLET] 10 mg PO TID #15 tablet
[2024-01-02 05:41] VITALS: BP 138/108; PULSE 101
== END 2024-01-02 05:56 | disposition home or self-care (01) ==
LOC: ED 04:45
DX: M25.521 Pain in right elbow (principal); M79.631 Pain in right forearm
CPT/HCPCS: 96372; 99283; J1885